=== PATIENT | female | born 1965 | race Caucasian/White ===

== ENCOUNTER → 2016-07-03 | Outpatient (CLI) | payer BC ==
[~2016-07-03] MED LIST: SUMA25TA12 PO; TOPI25TA10 PO; ZOLP5TAB PO
[2016-07-03 18:21] LABS: THYROID STIMULATING HORMONE 1.19 uIu/ml (0.300-4.500)
== END | disposition home or self-care (01) ==
LOC: C.LABBFT 12:14
PROVIDERS: ATTEND Nurse Practitioner
DX: E03.9 Hypothyroidism, unspecified (principal)

== ENCOUNTER → 2016-09-27 | Outpatient (CLI) | payer BC ==
--- NOTE | 2016-09-27 17:00 | DIAGNOSTIC IMAGING REPORT ---
LEFT RIBS UNILATERAL WITH PA CHEST CLINICAL HISTORY: R07.9 Left sided chest [id number] pain COMPARISON STUDY: None FINDINGS: Normal left ribs. Negative chest series. IMPRESSION: Negative study Electronically signed by: Chris Gregory M.D. 09/27/2016 4:59 PM Dictated Date/Time: 09/27/2016 4:57 PM
== END | disposition home or self-care (01) ==
LOC: C.RAD 16:20
PROVIDERS: ATTEND Internal Medicine
DX: R07.9 Chest pain, unspecified (principal)

== ENCOUNTER → 2017-04-15 | Outpatient (CLI) | payer BC ==
[~2017-04-15] MED LIST changes: +LORA-741 PO; +PREMPRO PO
[2017-04-15 10:39] LABS: HEMATOCRIT 42.9 % (37-47); HEMOGLOBIN 14.4 g/dL (12.0-16.0); MEAN CELL VOLUME 88.8 fL (80-100); MEAN CORPUSCULAR HEMOGLOBIN 29.8 pg (25-34); MEAN CORPUSCULAR HGB CONC 33.6 g/dl (32-36); MEAN PLATELET VOLUME 9.1 fL (7.4-10.4); PLATELET COUNT 211 K/uL (130-400); RED CELL DISTRIBUTION WIDTH CV 13.2 % (11.5-14.5); RED CELL DISTRIBUTION WIDTH SD 43.1 fL (36.4-46.3); WHITE BLOOD COUNT 7.44 K/uL (4.8-10.8)
== END | disposition home or self-care (01) ==
LOC: C.LAB1850 09:23
PROVIDERS: ATTEND Obstetrics & Gynecology
DX: R53.83 Other fatigue (principal); Z86.39 Personal history of other endocrine, nutritional and metabolic disease

== ENCOUNTER → 2017-06-04 | Outpatient (CLI) | payer BC ==
[~2017-06-04] MED LIST changes: -LORA-741 PO; -PREMPRO PO
--- NOTE | 2017-06-04 15:23 | MAMMOGRAPHY REPORT ---
BILATERAL DIGITAL SCREENING MAMMOGRAM TOMOSYNTHESIS WITH CAD: 06/04/2017 CLINICAL HISTORY: Routine screening. Patient has no complaints. TECHNIQUE: Breast tomosynthesis in addition to standard 2D mammography was performed. Current study was also evaluated with a Computer Aided Detection (CAD) system. COMPARISON: Comparison is made to exams dated: 04/18/2016 mammogram and 10/12/2009 mammogram - [facility]. BREAST COMPOSITION: The tissue of both breasts is heterogeneously dense, which may obscure small mas ses. FINDINGS: No suspicious masses, calcifications, or areas of architectural distortion are noted in ei ther breast. There has been no significant interval change compared to prior exams. IMPRESSION: ACR BI-RADS CATEGORY 1: NEGATIVE There is no mammographic evidence of malignancy. A 1 year screening mammogram is recommended. The pa tient will receive written notification of the results. Approximately 10% of breast cancers are not detected with mammography. A negative mammographic report should not delay biopsy if a clinically suggestive mass is present. Afua Cash M.D. ah/:06/04/2017 14:07:14 Merchandising Specialist: Natalie CHAMBERS(Jim)(Nancy), [facility] letter sent: Normal 1/2 BI-RADS Code: ACR BI-RADS Category 1: Negative
== END | disposition home or self-care (01) ==
LOC: C.MAMM 13:43
PROVIDERS: ATTEND Internal Medicine
DX: Z12.31 Encounter for screening mammogram for malignant neoplasm of breast (principal)

== ENCOUNTER → 2017-06-13 | Outpatient (CLI) | payer BC | END | disposition home or self-care (01) | LOC: C.LAB 12:54 | PROVIDERS: ATTEND Obstetrics & Gynecology | DX: N95.1 Menopausal and female climacteric states (principal) ==

== ENCOUNTER → 2017-08-08 | Outpatient (CLI) | payer BC ==
[2017-08-08 16:47] LABS: ALBUMIN 4.2 gm/dl (3.4-5.0); ALT/SGPT 25 U/L (12-78); AST/SGOT 16 U/L (15-37); BLOOD UREA NITROGEN 21 mg/dl (7-18); CARBON DIOXIDE 29 mmol/L (21-32); CREATININE 0.76 mg/dl (0.60-1.20); GLUCOSE 94 mg/dl (70-99); POTASSIUM 3.8 mmol/L (3.5-5.1); SODIUM 140 mmol/L (136-145)
[2017-08-08 16:50] LABS: ALKALINE PHOSPHATASE 90 U/L (45-117); CHOLESTEROL 217 mg/dl (0-200); TOTAL PROTEIN 7.8 gm/dl (6.4-8.2)
== END ==
LOC: C.LABBFT 13:24
PROVIDERS: ATTEND Internal Medicine
DX: E78.5 Hyperlipidemia, unspecified (principal)

== ENCOUNTER → 2017-08-27 | Outpatient (CLI) | payer BC | END | disposition home or self-care (01) | LOC: C.LABBFT 07:21 | PROVIDERS: ATTEND Nurse Practitioner | DX: E78.5 Hyperlipidemia, unspecified (principal) ==

== ENCOUNTER → 2017-12-12 | Day surgery (SDC) | payer BC ==
[2017-12-04 12:39] VITALS: BMI 26.0
[~2017-12-12] VITALS: Ht 157.5 cm; Wt 65.0 kg
[~2017-12-12] MED LIST changes: +LIDOCAINE HCL 2% 2 ML VIAL (20MG/ML) ONE; +LORA-741 PO; +MIDAZOLAM HCL 1 MG/ML 2ML VIAL ONE; +ONDANSETRON INJ 2 MG/ML 2 ML VIAL ONE; +PREMPRO PO; +PROPOFOL IV EMULSION 10 MG/ML 20 ML VIAL ONE; +SODIUM CHLORIDE 0.9% 500ML 500 ML IV ONE
[2017-12-12 09:24] VITALS: Ht 157.5 cm; Wt 65.0 kg
--- NOTE | 2017-12-12 09:32 | Endo History and Physical ---
History & Physical Date of Service: Dec 12, 2017. Chief Complaint: Screening Referring Physician: Dr. Lynch History of Present Illness 52 yo CF who presents for screening colonoscopy. Past Surgical History Hx Cardiac Surgery: No Hx Internal Defibrillator: No Hx Pacemaker: No Hx Abdominal Surgery: No Hx of Implantable Prosthesis: No Hx Post-Op Nausea and Vomiting: No Hx Cancer Surgery: No Hx Thoracic Surgery: No Hx Orthopedic: No Hx Urinary Tract Surgery: Yes (CYSTO STONE REMOVAL) Family History None Social History Smoking Status: Never Smoker Hx Substance Use: No Hx Alcohol Use: No Allergies Coded Allergies: No Known Allergies (Verified , 12/04/17) Current Medications Reported Home Medications Medications Dose Route/Sig Max Daily Dose Days Date Category [Prempro] 0.5 Tab PO HS 12/04/17 Reported Ativan (Lorazepam) 0.5 Mg Tab 0.5 Mg PO PRN 12/04/17 Reported Ambien (Zolpidem Tartrate) 5 Mg Tab 2.5 Mg PO HS 08/12/15 Reported Topamax (Topiramate) 25 Mg Tab 25 Mg PO HS 08/12/15 Reported Imitrex (Sumatriptan Succinate) 25 Mg Tab Unknown Dose PO PRN PRN 08/12/15 Reported Vital Signs Weight (Kilograms): 65.00 Height (Feet): 5 Height (Inches): 2 Date Time Temp Pulse Resp B/P (MAP) Pulse Ox O2 Delivery O2 Flow Rate FiO2 12/12/17 09:28 36.5 64 18 115/68 (84) 100 Room Air Physical Exam General Appearance: WD/WN, no apparent distress Respiratory/Chest: Auscultation: breath sounds normal Cardiovascular: Heart Auscultation: RRR Abdomen: Bowel Sounds: normal Inspection & Palpation: soft, non-distended, no tenderness, guarding & rebound Assessment and Plan Assessment: 52 yo CF who presents for screening colonoscopy. Plan: Proceed with colonoscopy.
--- NOTE | 2017-12-12 10:37 | Discharge Instructions ---
Endoscopy Patient Instructions Date / Procedure(s) Performed Dec 12, 2017. Colonoscopy Allergy Information Coded Allergies: No Known Allergies (Verified , 12/04/17) Discharge Date / Findings Dec 12, 2017. Colon polyp Internal hemorrhoids Medication Instructions OK to resume all medications today as prescribed Reported Home Medications Medications Dose Route/Sig Max Daily Dose Days Date Category [Prempro] 0.5 Tab PO HS 12/04/17 Reported Ativan (Lorazepam) 0.5 Mg Tab 0.5 Mg PO PRN 12/04/17 Reported Ambien (Zolpidem Tartrate) 5 Mg Tab 2.5 Mg PO HS 08/12/15 Reported Topamax (Topiramate) 25 Mg Tab 25 Mg PO HS 08/12/15 Reported Imitrex (Sumatriptan Succinate) 25 Mg Tab Unknown Dose PO PRN PRN 08/12/15 Reported Provider Instructions Activity Restrictions - No exercising or heavy lifting for 24 hours. - Do not drink alcohol the day of the procedure. - Do not drive a car or operate machinery until the day after the procedure. - Do not make any important decisions or sign important papers in 24 hours after the procedure. Following Day: - Return to full activity which may include returning to work/school. Diet Start your diet with liquids and light foods (jello, soup, juice, toast). Then eat your usual diet if not nauseated. Treatment For Common After Affects For mild abdominal pain, bloating, or excessive gas: - Rest - Eat lightly - Lie on right side Follow-Up Information Follow-up with DR. WORTHY as scheduled Anesthesia Information What You Should Know You have had a procedure that required some medicine to reduce anxiety and discomfort. This treatment is called moderate sedation. After receiving the treatment, you may be sleepy, but you will be able to breathe on your own. The effects of the treatment may last for several hours. Follow these instructions along with Activity/Diet recommendations noted above: * Do NOT do anything where dizziness or clumsiness would be dangerous. * Rest quietly at home today, then you can be up and about tomorrow. * Have a responsible person stay with you the rest of today. * You may have had an I.V. today. If so, you may take the dressing off later today. Recommendations Call your doctor if: * Trouble breathing * Continuous vomiting for more than 24 hours * Temperature above 101 degrees * Severe abdominal pain or bloating * Pain not relieved by pain medicine ordered * There is increased drainage or redness from any incision * A large amount of rectal bleeding greater than 2-3 tablespoons. (If you had a polyp/s removed or have hemorrhoids, a small amount of blood - from the rectum is to be expected.) * You have any unanswered questions or concerns. IN THE EVENT OF A SERIOUS EMERGENCY, GO TO THE NEAREST EMERGENCY ROOM Your discharge instructions were prepared by provider Yuval Shields. Patient Instructions Signature Page Mary Mendez Patient (or Guardian) Signature/Date: I have read and understand the instructions given to me by my caregivers. Caregiver/RN/Doctor Signature/Date: The above-named patient and/or guardian has received patient instructions on this date. + Original Patient Signature Page (only) stays with chart. Please make copy for patient.
--- NOTE | 2017-12-12 10:41 | GI REPORT ---
Patient Name: Mary Mendez Procedure Date: 12/12/2017 9:43 AM Date of : 1965 Admit Type: Outpatient Age: 52 Gender: Female Attending MD: Yuval Shields DO Procedure: Colonoscopy Providers: Yuval Shields DO Referring MD: Yuval Shields DO Indications: Screening for colorectal malignant neoplasm Medicines: Monitored Anesthesia Care Complications: No immediate complications. Estimated Blood Loss: Estimated blood loss: none. Procedure: Pre-Anesthesia Assessment: - Prior to the procedure, a History and Physical was performed, and patient medications and allergies were reviewed. The patient's tolerance of previous anesthesia was also reviewed. The risks and benefits of the procedure and the sedation options and risks were discussed with the patient. All questions were answered, and informed consent was obtained. Prior Anticoagulants: The patient has taken no previous anticoagulant or antiplatelet agents. ASA Grade Assessment: II - A patient with mild systemic disease. After reviewing the risks and benefits, the patient was deemed in satisfactory condition to undergo the procedure. After I obtained informed consent, the scope was passed under direct vision. Throughout the procedure, the patient's blood pressure, pulse, and oxygen saturations were monitored continuously. The scope was introduced through the anus and advanced to the terminal ileum. The colonoscopy was performed without difficulty. The patient tolerated the procedure well. The quality of the bowel preparation was good. The terminal ileum, ileocecal valve, appendiceal orifice, and rectum were photographed. Findings: The perianal and digital rectal examinations were normal. A 4 mm polyp was found in the descending colon. The polyp was sessile. The polyp was removed with a cold snare. Resection and retrieval were complete. Non-bleeding internal hemorrhoids were found during retroflexion. The hemorrhoids were small. Impression: - One 4 mm polyp in the descending colon, removed with a cold snare. Resected and retrieved. - Non-bleeding internal hemorrhoids. Recommendation: - Resume previous diet. - Continue present medications. - Repeat colonoscopy for surveillance based on pathology results. - Return to primary care physician as previously scheduled. Yuval Shields DO 12/12/2017 10:41:00 AM This report has been signed electronically. Note Initiated On: 12/12/2017 9:43 AM Number of Addenda: 0 I attest to the content of the Intraoperative Record and orders documented therein, exceptions below {[id number]}
--- NOTE | 2017-12-12 10:48 | Anesthesiology Progress Note ---
Anesthesia Post Op Note Date & Time Dec 12, 2017 at 10:48 Vital Signs Pain Intensity: 0 Vital Signs Past 12 Hours Date Time Temp Pulse Resp B/P (MAP) Pulse Ox O2 Delivery O2 Flow Rate FiO2 12/12/17 10:40 63 20 106/66 (79) 98 Room Air 12/12/17 10:25 36.5 62 16 98/55 (69) 98 Room Air 12/12/17 09:28 36.5 64 18 115/68 (84) 100 Room Air Notes Mental Status: alert / awake / arousable, participated in evaluation Pt Amnestic to Procedure: Yes Nausea / Vomiting: adequately controlled Pain: adequately controlled Airway Patency, RR, SpO2: stable & adequate BP & HR: stable & adequate Hydration State: stable & adequate Anesthetic Complications: no major complications apparent
[2017-12-12 10:55] VITALS: BP 109/78; PULSE 66; TEMP 36.5; O2SAT 100
== END | disposition home or self-care (01) ==
LOC: C.GI 09:08
PROVIDERS: ATTEND Internal Medicine
DX: Z12.11 Encounter for screening for malignant neoplasm of colon (principal); D12.4 Benign neoplasm of descending colon; K57.30 Diverticulosis of large intestine without perforation or abscess without bleeding; K64.8 Other hemorrhoids; Z80.0 Family history of malignant neoplasm of digestive organs; K21.9 Gastro-esophageal reflux disease without esophagitis

== ENCOUNTER 2023-12-07 21:56 | Observation (INO) ==
--- OUTSIDE RECORDS SUMMARY | 2023-12-07 22:03 | External Medical Summary | Summary of Care ---
Author Name Unknown Organization [facility] Address [address] [place] [address] Phone [phone] Care Team Providers Care Wind Energy Project Manager Name Role Phone Isabel Hendrix DO Primary Care Provider [phone] Reason for Visit * Reason Onset Date Comments Follow Up 11/12/2023 Encounter Details Date Type Department Care Team (Late st Contact Info) Description 11/12/2023 2:00 PM EDT Scheduled Telephone [facility], [facility] [address] [place] [address] [facility] Nurse Phone Call Interventional Pain [facility] [address] [place] [phone] Arrived Allergies Active Allergy Reactions Criticality Noted Date Comments Egg-Derived Products 09/26/2020 Other reaction(s): Headache Starch-Maltodextrin 10/26/2020 Triggers migraines Tilactase 09/26/2020 Other reaction(s): GI Intolerance documented as of this encounter (statuses as of 11/12/2023) Medications Medication Sig Dispensed Refills Start Date End Date Status zolpidem (AMBIEN) 5 MG Tablet Take 1 Tablet by mouth. 1/2 at bedtime 03/01/2019 Active Qulipta 60 MG Oral Tablet Daily 10/06/2021 Active Topiramate 25 MG Oral Tablet (topAMAX)Indications :Migraine variant,Tremor TAKE 2 TABLETS EVERY NIGHT AT BEDTIME 180 Tablet 1 11/22/2021 Active SUMAtriptan Succinate 100 MG Oral Tablet TAKE ONE TABLET BY MOUTH AT ONSET OF MIGRAINE , MAY REPEAT IN 2 HOURS . MAX OF 2 IN 24 HOURS. 10 Tablet 5 02/04/2022 Active documented as of this encounter (statuses as of 11/12/2023) Active Problems Problem Noted Date Diagnosed Date Localized adiposity 12/10/2007 ADVANCE DIRECTIVE INFORMATION 10/07/2007 Overview: Yes, Patient instructed to provide copy of advance directive for provider to review and to be scanned into Electronic Medical Record VARIANTS OF MIGRAINE WITHOUT MENTION OF INTRACTABLE MIGRAINE 10/07/2005 documented as of this encounter (statuses as of 11/12/2023) Immunizations Name Administration Dates Next Due TDAP (age 10 and older)(Boostrix) 08/07/2014 documented as of this encounter Social History Tobacco Use Types Packs/Day Years Used Date Smoking Tobacco: Never Passive Smoke Exposure: Never Smokeless Tobacco: Never Alcohol Use Standard Drinks/Week Comments No 0 (1 standard drink = 0.6 oz pur e alcohol) PHQ-2 Answer Date Recorded PHQ Adult Total Score 0 09/30/2022 Hunger Vital Sign Answer Date Recorded Within the past 12 months, y ou worried that your food would run out before you got the money to buy more. Never true 10/01/19 23 Within the past 12 months, t he food you bought just didn't last and you didn't have money to get more. Never true 09/30/2022 Utilities Answer Date Recorded Do you have trouble paying y our heating, water, or electric bill? (Adult - for ages 18 years and over) Not on file 10/07/2023 Is your family able to pay t he heat, water, or electric bill? (Household - for ages 0-17 years) Not on file 10/07/2023 Does your family have access to good internet? (Household - for ages 0-17 years) Not on file 10/07/2023 Social Connections Answer Date Recorded How often do you feel lonely or isolated from those around you? (Adult - for ages 18 years and over) Not on file 10/07/2023 Sex and Gender Information Value Date Recorded Sex Assigned at Female 09/30/2022 8:23 AM EDT Gender Identity Female 09/30/2022 8:23 AM EDT Sexual Orientation Straight 09/30/2022 8: 23 AM EDT Job Start Date Occupation Industry Not on file Not on file Not on file documented as of this encounter Miscellaneous Notes * Telephone Encounter - Melina Boggs LPN - 11/12/2023 2:02 PM EDT Patient reports 60% improvement after C7-T1 interlaminar epidural steroid injection on the left side. Tolerable and will call as needed. documented in this encounter Plan of Treatment Upcoming Encounters Date Type Department Care Team (Late st Contact Info) Description 11/21/2023 11:50 AM EDT Office Visit [facility] [address] [place] [address] Isabel Hendrix DO [address] [place] [address] Health Maintenance Due Date Last Done Comments HIV Screening 1982 Hepatitis C Screening 1985 Hepatitis B Vaccine (1 of 3 - 19+ 3-dose series) 1986 HPV/Co-Test 1997 Cologuard 02/15/2012 Fecal Occult Blood Test 02/15/2012 Sigmoidoscopy 02/15/2012 Zoster Vaccines (1 of 2) 2017 Cervical Cancer Screening 06/08/2021 Pap Smear 06/08/2021 06/08/2018, 05/22 (Done elsewhere), 10/22/2011 (Not indicated) COVID-19 Vaccine (2022- season) 2022 07/04/2020, 06/19/2020 Mammogram 06/29/2023 06/28/2022, 06/19 (Done elsewhere) Depression Screening 10/01/2023 09/30/2022 Influenza Vaccine (FLU shot) (#1) 2023 DTaP,Tdap,and Td Vaccines (2 - Td or Tdap) 08/07/2024 08/07/2014 Diabetes Screening 10/02/2025 10/02/2022, 0 10/26/2020, 10/26/2020, Additional history exists Colonoscopy 12/13/2027 12/12/2017 Colorectal Cancer Screening 12/13/2027 Lipid Panel 05/24/2028 05/24/2023 HPV (Gardasil) Vaccine Aged Out No lo nger eligible based on patient's age to complete this topic MENINGOCOCCAL (MENACTRA/MENVEO) Aged Out No longer eligible based on patient's age to complete this topic Pneumococcal Vaccine: Pediatrics (0 to 5 Years) and At-Risk Patients (6 to 64 Years) Aged Out No longer eligible based on patient's age to complete this topic documented as of this encounter Medical Devices Not on filedocumented as of this encounter Advance Directives * Full Code (Latest Code Status on File) Date Activated Date Inactivated Comments 10/26/2020 9:11 AM 10/26/2020 4:26 PM This order ref lects the patients wishes and were consensually agreed upon. Question Answer Comments Discussion of Advance Directives occurred with: Not Discussed * Full Code Date Activated Date Inactivated Comments 12/14/2007 3:40 PM 12/14/2007 9:32 PM Care Teams Wind Energy Project Manager Relationship Specialty Start Date End Date Isabel Hendrix DO [address] [facility] [place] [address] PCP - General Family Medicine 09/30/22 documented as of this encounter
--- OUTSIDE RECORDS SUMMARY | 2023-12-07 22:03 | External Medical Summary | Summary of Care ---
Author Name Unknown Organization [facility] Address [address] [place] [address] Phone [phone] Care Team Providers Care Rubber Goods Finisher Name Role Phone Isabel Hendrix DO Primary Care Provider [phone] Reason for Visit * Reason Onset Date Comments Health Maintenance 11/04/2023 Encounter Details Date Type Department Care Team (Late st Contact Info) Description 11/04/2023 Telephone [facility] [address] [place] [address] Isabel Hendrix DO [address] [place] [address] Health Maintenance Allergies Active Allergy Reactions Criticality Noted Date Comments Egg-Derived Products 09/26/2020 Other reaction(s): Headache Starch-Maltodextrin 10/26/2020 Triggers migraines Tilactase 09/26/2020 Other reaction(s): GI Intolerance documented as of this encounter (statuses as of 11/04/2023) Medications Medication Sig Dispensed Refills Start Date [...] as of this encounter (statuses as of 11/04/2023) Active Problems Problem Noted Date Diagnosed Date Localized adiposity 12/10/2007 ADVANCE DIRECTIVE INFORMATION 10/07/2007 Overview: Yes, Patient instructed to provide copy of advance directive for provider to review and to be scanned into Electronic Medical Record VARIANTS OF MIGRAINE WITHOUT MENTION OF INTRACTABLE MIGRAINE 10/07/2005 documented as of this encounter (statuses as of 11/04/2023) Immunizations Name Administration Dates Next Due TDAP [...] encounter Miscellaneous Notes * Telephone Encounter - Merari Zamudio LPN - 11/04/2023 10:36 AM EDT Care Gaps Comprehensive Care Outreach Last Office/Telemedicine Visit: 05/23/2023 (in office), Visit date not found (telemedicine) Next Office Visit: 11/21/2023 Hemoglobin AIC Results: No results found for: "HEMOGLOBIN A1C" BP Readings from Last 1 Encounters: 10/15/23 120/75 Reviewed Health Maintenance below: Health Maintenance Topic Date Due HIV Screening Never done Hepatitis C Screening Never done Hepatitis B Vaccine (1 of 3 - 19+ 3-dose series) Never done Zoster Vaccines (1 of 2) Never done Cervical Cancer Screening 06/08/2021 COVID-19 Vaccine (2022- season) 2022 Mammogram 06/29/2023 Depression Screening 10/01/2023 Mamm Pap already scheduled Care Gap Outreach Action Taken: Datalinkt message sent documented in this encounter Plan of Treatment Upcoming Encounters Date Type Department Care Team (Late st Contact Info) Description 11/12/2023 2:00 PM EDT Scheduled Telephone Interventional Pain Center, [facility] [address] [place] [address] [facility], Nurse Phone Call Interventional Pain [facility] [address] [place] [phone] 11/21/2023 11:50 AM EDT Office Visit [facility] [address] [place] [id number] Isabel Hendrix DO [address] [place] [address] Health Maintenance Due Date Last Done Comments HIV Screening 1982 Hepatitis C Screening 1985 Hepatitis B Vaccine (1 of 3 - 19+ 3-dose series) 1986 HPV/Co-Test 1997 Cologuard 02/15/2012 Fecal Occult Blood Test 02/15/2012 Sigmoidoscopy 02/15/2012 Zoster Vaccines (1 of 2) 2017 Cervical Cancer Screening 06/08/2021 Pap Smear 06/08/2021 06/08/2018, 05/22 (Done elsewhere), 10/22/2011 (Not indicated) COVID-19 Vaccine (3 - season) 2022 07/04/2020, 06/19/2020 Mammogram 06/29/2023 06/28/2022, [...] 3:40 PM 12/14/2007 9:32 PM Care Teams Rubber Goods Finisher Relationship Specialty Start Date End Date Isabel Hendrix DO [address] [place] [address] PCP - General Family Medicine 09/30/22 documented as of this encounter
[2023-12-07] MEDS: FAMOTIDINE 20MG IV PUSH 20 MG/5 ML SYR IV STA (22:21)
[2023-12-07] MEDS: SODIUM CHLORIDE 0.9% 1,000 ML IV STA (22:22)
[2023-12-07] MEDS: ACETAMINOPHEN 1,000 MG/100 ML VIAL IV STA (22:23)
[2023-12-07] MEDS: ONDANSETRON INJ 2 MG/ML 2 ML VIAL IV STA (22:23)
--- NOTE | 2023-12-07 22:29 | Emergency Department Note ---
History of Present Illness General Chief complaint: Abdominal Pain Stated complaint: PAIN IN UPPER ABDOMEN, BACK PAIN, NAUSEA Time Seen by Provider: 12/07/23 22:03 History of Present Illness Maximum Pain Intensity: 5 This 58-year-old female presents ER complaining of epigastric right upper quadrant pain after eating a chicken sandwich and Azeri fries tonight from the field. No history of similar symptoms in the past. She still has her gallbladder. Patient denies chest pain, dyspnea, fevers, vomiting, diarrhea or any other medical complaints. She has had a hiatal hernia surgery in the past. No other abdominal surgeries. Home Medications Medication Instructions Recorded Confirmed Type sumatriptan succinate 100 mg tablet 100 mg PO .COMPLEX PRN Headache 04/07/23 12/07/23 Rx #12 tabs topiramate 50 mg tablet 50 mg PO BID #180 tabs 06/09/23 12/07/23 Rx atogepant 60 mg tablet (Qulipta) 60 mg PO PM 90 days #90 tabs 07/02/23 12/07/23 Rx zolpidem 5 mg tablet 5 mg PO HS PRN insomnia #30 tabs 08/06/23 12/07/23 Rx meclizine 25 mg tablet 25 mg PO TID PRN dizziness #90 tabs 08/07/23 12/07/23 Rx Allergies Allergy/AdvReac Type Severity Reaction Status Date / Time maltodextrin Allergy Intermediate Migraine Verified 10/29/23 07:44 Past Med/Surg History Problem List Abdominal pain, acute (Acute) Biliary colic (Acute) Posterior auricular pain of right ear Vertigo Acute migraine Varicose veins of both lower extremities Migraines Eczema (Chronic) Insomnia (Chronic) Hypothyroidism (Chronic) Cervical facet syndrome (Chronic) Hyperlipidemia (Chronic) Depression with anxiety (Chronic) Classic migraine with aura (Chronic) Neck pain (Acute) Mild obstructive sleep apnea Fatigue Chronic migraine Palpitations Myofascial pain Vitamin D deficiency Pulmonary nodule Medical History Endometriosis Surgical History History of endometrial ablation History of hysteroscopy History of lithotripsy History of cystostomy Family History Father Cardiac disorder Other Dementia Denies family history of Ovarian cancer Prostate cancer Breast cancer Colorectal cancer Social History Smoking Status: Never smoker Second Hand Exposure: No; Do You Dip or Chew Tobacco: No; Hx Alcohol Use: No Hx Substance Use: No Preferred Language: Chinese Communication Ability: Effective Visual Impairment: No Limitations Hearing Ability: Normal Beliefs That Will Affect Care: None marital status: Current Living Situation: Family current occupational status: employed 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 Feels Safe at Home: Yes Childhood Exposure to Second-Hand Smoke: No Diet: other Diet Comment: healthy diet Dental Care, Regularly: Yes Physical Activity Frequency: 3-4 Times per Week Seatbelt Use: always Sunscreen Use: Yes Review of Systems A total of 10 systems reviewed and were otherwise negative Physical Exam Vital Signs Vital Signs - 24 hr 12/07/23 22:00 12/07/23 22:13 12/07/23 22:24 Temperature 36.6 C Temperature Source Temporal Artery Scan Pulse Rate 84 80 Pulse Rate [Apical] Pulse Strength [Apical] Respiratory Rate 18 Respiratory Effort / Characteristics Non-Labored Spontaneous Respiratory Depth Normal Respiratory Pattern Regular Blood Pressure 158/83 H Blood Pressure [Left Arm] Blood Pressure Mean 108 Blood Pressure Mean [Left Arm] Pulse Oximetry 100 99 Oxygen Delivery Method Room Air Room Air Sepsis Recent Fever Within 48 Hours No Sepsis New/Unexplained Change in Mental Status N/A Sepsis Action Taken by Nursing No Action Required 12/07/23 22:25 12/08/23 00:00 12/08/23 00:01 Temperature Temperature Source Pulse Rate Pulse Rate [Apical] 76 75 75 Pulse Strength [Apical] Normal Respiratory Rate 18 16 16 Respiratory Effort / Characteristics Non-Labored Spontaneous Non-Labored Spontaneous Respiratory Depth Normal Normal Respiratory Pattern Regular Regular Blood Pressure Blood Pressure [Left Arm] 160/93 H 111/80 111/80 Blood Pressure Mean Blood Pressure Mean [Left Arm] 115 90 90 Pulse Oximetry 100 98 98 Oxygen Delivery Method Room Air Room Air Sepsis Recent Fever Within 48 Hours Sepsis New/Unexplained Change in Mental Status Sepsis Action Taken by Nursing VITALS: Vitals are noted on the nurse's note and reviewed by myself. Vital signs stable. GENERAL: Pleasant patient, in no acute distress, nondiaphoretic, well-developed well-nourished. SKIN: Capillary reflex less than 2 seconds. HEENT: Normocephalic. PERRLA. EOMI. Nares patent. Mucous membranes moist. Neck is supple without nuchal rigidity. HEART: Regular rate and rhythm LUNGS: Clear to auscultation bilaterally without wheezes, rales or rhonchi. No retractions or accessory muscle use. ABDOMEN: Positive bowel sounds x 4. Normal tympanic percussion. Soft, tender epigastric right upper quadrant,, without masses or organomegaly. No guarding or rebound tenderness. no CVA tenderness MUSCULOSKELETAL: No gross musculoskeletal defects. NEURO: Patient was alert and oriented to person place and time. No focal neurological deficits. Course Administered Medications Sodium Chloride (Nss) 1,000 mls @ 100 mls/hr IV .Q10H BIPIN Stop: 01/07/24 00:14 Last Admin: 12/08/23 00:40 Dose: 100 mls/hr Documented By: JENNIFER Discontinued Medications Sodium Chloride (Nss) 1,000 mls @ 999 mls/hr IV .Q1H1M STA Stop: 12/07/23 23:13 Last Infusion: 12/07/23 23:23 Dose: Infused Documented By: Admin: 12/07/23 22:22 Dose: 999 mls/hr Documented By: KM Famotidine (Pepcid 20mg Iv Push) 20 mg in 5 mls @ 2.5 mls/min IV NOW STA Stop: 12/07/23 22:14 Last Admin: 12/07/23 22:21 Dose: 2.5 mls/min Documented By: KM Acetaminophen (Ofirmev) 1,000 mg in 100 mls @ 400 mls/hr IV NOW STA Stop: 12/07/23 22:27 Last Infusion: 12/07/23 22:38 Dose: Infused Documented By: Admin: 12/07/23 22:23 Dose: 400 mls/hr Documented By: KM Cefoxitin Sodium (Mefoxin) 2,000 mg in 60 mls @ 100 mls/hr IV NOW STA Stop: 12/08/23 00:39 Last Infusion: 12/08/23 01:01 Dose: Infused Documented By: Admin: 12/08/23 00:38 Dose: 100 mls/hr Documented By: JENNIFER Ondansetron HCl (Ondansetron Inj 2 Mg/Ml 2 Ml Vial) 4 mg IV NOW STA Stop: 12/07/23 22:14 Last Admin: 12/07/23 22:23 Dose: 4 mg Documented By: KM Medical Decision Making Medical Records Attestation: I reviewed the patient's medical records. Home Medications Current Medication List: was personally reviewed by me Laboratory Data Attestation: I reviewed the patient's lab results. 12/07/23 22:20 12/07/23 22:20 Lab Results 12/07/23 12/07/23 Range/Units 22:20 23:02 WBC 15.62 H (4.8-10.8) K/ul RBC 4.84 (4.20-5.40) M/uL Hgb 14.1 (12.0-16.0) g/dl Hct 41.9 (37.0-47.0) % MCV 86.6 (80.0-100.0) fL MCH 29.1 (25.0-34.0) pg MCHC 33.7 (32.0-36.0) g/dL RDW Std Deviation 41.5 (36.4-46.3) fL RDW Coeff of [place] 13.2 (11.5-14.5) % Plt Count 271 (130-400) K/uL MPV 8.6 L (9.4-12.4) fL Immature Gran % (Auto) 0.4 % Neut % (Auto) 80.5 % Lymph % (Auto) 13.1 % [place] % (Auto) 5.4 % Eos % (Auto) 0.3 % Baso % (Auto) 0.3 % Neut # (Auto) 12.58 H (1.40-6.50) K/uL Lymph # (Auto) 2.05 (1.20-3.40) K/uL [place] # (Auto) 0.84 H (0.11-0.59) K/uL Eos # (Auto) 0.05 (0.00-0.50) K/uL Baso # (Auto) 0.04 (0.00-0.20) K/uL Immature Gran # (Auto) 0.06 (0.01-0.20) K/uL Sodium 140 (136-145) mmol/L Potassium 3.9 (3.5-5.1) mmol/L Chloride 106 (98-107) mmol/L Carbon Dioxide 26 (21-32) mmol/L Anion Gap 8 (3-11) BUN 15 (6-23) mg/dl Creatinine 0.77 (0.6-1.2) mg/dl Est Cr Clr Drug Dosing 72.4 ml/min Est GFR ( Amer) 100.0 ml/min Est GFR (Non-Af Amer) 86.3 ml/min BUN/Creatinine Ratio 19.5 (10-20) Glucose 140 H (70-99(Fasting)) mg/dl Calcium 10.0 (8.6-10.3) mg/dl Total Bilirubin 0.3 (0.2-1.0) mg/dl AST 16 (13-39) U/L ALT 14 (7-52) U/L Alkaline Phosphatase 103 (34-104) U/L Troponin I High Sens 3.1 (0-14) pg/ml Total Protein 7.3 (6.0-8.3) gm/dl Albumin 4.9 (3.4-5.0) gm/dl Globulin 2.4 L (2.5-4.0) gm/dl Albumin/Globulin Ratio 2.0 (0.9-2) Lipase 67 (11-82) U/L HCG, Qual Negative (Negative) Urine Color Yellow Urine Appearance Clear (Clear) Urine pH 6.5 (4.5-7.5) Ur Specific Decker 1.015 (1.000-1.030) Urine Protein Negative (Negative) Urine Glucose (UA) Negative (Negative) Urine Ketones Negative (Negative) Urine Blood Negative (Negative) Urine Nitrite Negative (Negative) Urine Bilirubin Negative (Negative) Urine Urobilinogen Negative (Negative) Ur Leukocyte Esterase 2+ H (Negative) Urine WBC (Auto) 11-20 H (0-5) /hpf Urine RBC (Auto) 0-2 (0-2) /hpf U Hyaline Cast (Auto) 0-2 (0-2) /lpf U Epithel Cells (Auto) 0-2 (0-2) /hpf Urine Bacteria (Auto) None Seen (None Seen) Imaging Data Attestation: I personally reviewed and interpreted this imaging study as follows: Radiologist's Impression: Gallbladder Ultrasound 12/07/23 22:13 Exam(s): US GALLBLADDER EXAM: US Abdomen Limited, Right Upper Quadrant CLINICAL HISTORY: ruq pain. TECHNIQUE: Real-time ultrasound of the right upper quadrant with image documentation. COMPARISON: CT abdomen 02/07/2023. FINDINGS: Liver: 18.6 image length. Heterogeneous. No focal intrahepatic lesion. No mass. No intrahepatic bile duct dilation. Gallbladder: Multiple mobile gallstones within the gallbladder. No gallbladder wall thickening or pericholecystic fluid. Nondiagnostic sonographic Delgado's sign due to medication. Common bile duct: 3.9 mm. No stones. No dilation. Pancreas: 2.2 mm pancreatic duct. Pancreas is normal in appearance. Right kidney: 11.3 cm length. 1.1 cm cyst in the midpole. No stones. No solid mass. No hydronephrosis. IMPRESSION: Cholelithiasis. No alternatives for acute cholecystitis or biliary obstruction. Prominent heterogeneous liver without focal lesion. Right renal cyst. Electronically signed by: Chandu Wilson M.D. 12/08/23 01:[address] [facility] Narrative Prior records/ancillary studies reviewed. Triage Nursing notes reviewed. Additional history obtained from nursing. The patient's history was concerning for abdominal pain. Differential diagnosis: Etiologies such as appendicitis, diverticulitis, PUD, biliary pathology, UTI, pancreatitis, obstruction, mesenteric ischemia, aortic pathology, infections, inflammatory bowel disease, renal colic, as well as others were entertained. Physical examination findings: As above. ER treatment provided: An order was placed for continuous cardiac monitoring. The monitor shows a rate of 60-100 with a sinus rhythm per my Independent interpretation. Zofran, Pepcid, Tylenol, IV fluids were ordered On reassessment the patient felt better. Diagnostics interpreted by me: ECG: Ordered for upper abdominal pain EKG: Normal sinus, normal intervals, no acute ST-T wave changes. Impression normal sinus rhythm independently interpreted by myself The labs Independently Interpreted by myself revealed leukocytosis, normal LFTs. Normal lipase Hyperglycemia without DKA Imaging studies: Ultrasound as above HEART SCORE: Hx: high/mod/low suspicion: 0 ECG: ST depression/nonspecific changes/normal: 0 Age: Greater than 65/45-64/less than 45: 1 Risk factors: (Hypertension, hyperlipidemia, diabetes, coronary disease, tobacco use, cocaine use): 0 Troponin: Greater than 2 times normal limits/1-2 times normal limits/normal: 0 Total: 1 Consultation: A consultation was placed with the general surgery. The case was discussed and diagnostics were reviewed. The patient was evaluated in the ER for further treatment. Exam and history seem consistent with biliary colic with concerns for acute cholecystitis. Surgery did evaluate the patient. They will admit her. Patient is agreeable. Patient was admitted to the surgical service. Normal LFTs. Mild leukocytosis. Normal bilirubin. By the evaluation outlined above emergent etiologies such as appendicitis, diverticulitis, PUD, UTI, pancreatitis, obstruction, mesenteric ischemia, aortic pathology, inflammatory bowel disease, renal colic, as well as others were deemed relatively unlikely. The pt informed about the findings as listed above. All questions were answered and pleased with the treatment. The chart was completed utilizing PingMe Speech voice recognition software. Grammatical errors, random word insertions, pronoun errors, and incomplete sentences are an occassional consequence of this system due to software limitations, ambient noise, and hardware issues. Any formal questions or concerns about the content, text, or information contained within the body of this dictation should be directly addressed to the physician starch treating assistant for clarification. Impression & Plan Biliary colic, Abdominal pain, acute Discharge Plan Visit Data Chief Complaint: Abdominal Pain Stated Complaint: PAIN IN UPPER ABDOMEN, BACK PAIN, NAUSEA ED Provider: Chris Craig ED Midlevel Provider: Ann Lebron Discharge Problem: Biliary colic, Abdominal pain, acute Patient Disposition: Being Evaluated by Surgeon Condition: Good Forms Stand Alone Forms: ISORG Prescriptions Prescriptions: No Action sumatriptan succinate 100 mg tablet 100 mg PO .COMPLEX PRN (Reason: Headache) Qty: 12 5RF Rx Instructions: 100 mg PO TAKE 1 TAB AT ONSET OF MIGRAINE, MAY REPEAT IN 2 HOURS IF NEEDED DO NOT EXCEED 3 DAYS/WEEK PRN; topiramate 50 mg tablet 50 mg PO BID Qty: 180 3RF zolpidem 5 mg tablet 5 mg PO HS PRN (Reason: insomnia) Qty: 30 3RF Qulipta 60 mg tablet 60 mg PO PM 90 Days Qty: 90 3RF meclizine 25 mg tablet 25 mg PO TID PRN (Reason: dizziness) Qty: 90 0RF Referrals Referrals: Jackie Posey CRNP [Primary Care Provider] -
[2023-12-07 22:36] LABS: Basophils # (auto) 0.04 K/uL (0.00-0.20); Basophils % (auto) 0.3 %; Eosinophils # (auto) 0.05 K/uL (0.00-0.50); Eosinophils % (auto) 0.3 %; Hematocrit (blood only) 41.9 % (37.0-47.0); Hemoglobin 14.1 g/dl (12.0-16.0); Immature Granulocytes # (auto) 0.06 K/uL (0.01-0.20); Immature Granulocytes % (auto) 0.4 %; Lymphocytes # (auto) 2.05 K/uL (1.20-3.40); Lymphocytes % (auto) 13.1 %; Mean Corpuscular Hemoglobin 29.1 pg (25.0-34.0); Mean Corpuscular Hgb Conc 33.7 g/dL (32.0-36.0); Mean Corpuscular Volume 86.6 fL (80.0-100.0); Mean Platelet Volume 8.6 fL (9.4-12.4); Monocytes # (auto) 0.84 K/uL (0.11-0.59); Monocytes % (auto) 5.4 %; Neutrophils # (auto) 12.58 K/uL (1.40-6.50); Neutrophils % (auto) 80.5 %; Platelet Count 271 K/uL (130-400); RDW Coefficient of Variation 13.2 % (11.5-14.5); RDW Standard Deviation 41.5 fL (36.4-46.3); Red Blood Count 4.84 M/uL (4.20-5.40); White Blood Count 15.62 K/ul (4.8-10.8)
[2023-12-07 22:49] LABS: Albumin Level 4.9 gm/dl (3.4-5.0); BUN Creatinine Ratio 19.5 (10-20); Bilirubin,Total 0.3 mg/dl (0.2-1.0); Creatinine Clr Calc Pharmacy 72.4 ml/min; Est GFR (Non-African American) 86.3 ml/min; Globulin 2.4 gm/dl (2.5-4.0); Potassium 3.9 mmol/L (3.5-5.1); Total Protein 7.3 gm/dl (6.0-8.3)
[2023-12-07 22:56] LABS: Troponin I High Sensitivity 3.1 pg/ml (0-14)
[2023-12-07 23:17] LABS: Appearance Urine Clear (Clear); Bacteria Urine Automated None Seen (None Seen); Bilirubin Urine Negative (Negative); Blood Urine Negative (Negative); Cast Urine Automated 0-2 /lpf (0-2); Color Urine Yellow; Epithelial Cell Urine Auto 0-2 /hpf (0-2); Glucose Urine UA Negative (Negative); Ketones Urine Negative (Negative); Leukocyte Esterase Urine 2+ (Negative); Nitrite Urine Negative (Negative); Protein Urine Negative (Negative); RBC Urine Automated 0-2 /hpf (0-2); Specific Gravity Urine 1.015 (1.000-1.030); Urobilinogen Urine Negative (Negative); pH Urine 6.5 (4.5-7.5)
[2023-12-08] MEDS ORDERED: ONDANSETRON INJ 2 MG/ML 2 ML VIAL IV PRN ×2 (00:01→13:52)
[2023-12-08] MEDS ORDERED: ACETAMINOPHEN 1,000 MG/100 ML VIAL IV PRN (00:01)
--- NOTE | 2023-12-08 00:01 | History & Physical Report ---
Date of Service December 07, 2023 Assessment & Plan (1) Biliary colic: Plan: I discussed with the treating clinician emergency department and evaluated the patient in room C11. I discussed with the patient that the pulmonary read of her ultrasound does show cholelithiasis without definite cholecystitis. I discussed with the patient that I would like to wait for the official radiology read to see if the patient has cholecystitis and if this was present would be an indication to have her admitted to the hospital for consideration of cholecystectomy. I did discuss with the patient that if she does not have cholecystitis but merely has cholelithiasis an argument can be made for her to be discharged home and pursue cholecystectomy as an outpatient. I did discuss with the patient that if she was to be discharged home I cannot predict in any reliable fashion if she would have symptoms similar to what caused her emergency room presentation nor could I predict the timing of such symptoms. The patient does note that her symptoms were very severe and she wishes to be admitted to the hospital for consideration of cholecystectomy at this time. We will therefore admit her to the surgical service proceeding as follows: Analgesics to be provided Antiemetics to be provided IV fluids to be provided for hydration Will initiate antibiotics in the form of cefoxitin We Will get repeat labs the morning of 12/08/2023 to ensure there is no elevation of her LFTs that are not evident on her current laboratories Will check a test Will get a preoperative chest x-ray for baseline purposes Will tentatively schedule the patient undergo cholecystectomy on 12/08/2023. Will use SCDs for DVT prevention, no chemical means due to planned surgery Additional recommendations be based on operative findings and her postoperative recovery thereafter She will be a level 1 full code Addendum: Chest x-ray does not show any evidence of pneumonia. test noted to be negative Addendum: (1:15 AM) Gallbladder ultrasound report obtained from radiology. Interpreting radiologist noted multiple mobile gallstones within the gallbladder with no gallbladder wall thickening or pericholecystic fluid. The common bile duct was not dilatated and there was no evidence of choledocholithiasis noted I discussed these findings with the patient indicating that there is no definite evidence of cholecystitis. Due to the biliary colic that caused her presentation she still wished to be admitted to the hospital for consideration of cholecystectomy on 12/08/2023. Will continue with plan as detailed above History of Present Illness Chief Complaint: Abdominal pain Primary Care Provider: MATTHEW Hernandez This is a 58-year-old female who presented to the emergency department secondary to abdominal pain. The patient notes that she occasionally gets heartburn after eating and she has had symptoms such as this for months. The patient notes that she went to a restaurant and had a chicken salad and shortly after eating (approximate 1/2-hour) she developed severe pain in the epigastric region as well as the right upper quadrant. She says that the pain was nonradiating without any modifying factors other than it was relieved with medicines administered in the emergency department. The patient did have nausea without vomiting. She denies any fevers, shakes, or chills. Patient notes that she has no known history of gallstones prior to today's presentation. The patient says that she has had prior surgery in the form of a robotic/laparoscopic Brian fundoplication and hiatal hernia repair in January 2023 performed at [facility] in [facility]. She notes that this procedure was performed secondary to severe reflux. The patient notes that she leads an active lifestyle and does not get chest pain or shortness of breath with her typical activities of daily living. She specifically notes that she can negotiate multiple flights of steps without getting chest pain or shortness of breath. She notes that she is a non-smoker. Since arrival to the hospital the patient has had labs and imaging which I independent reviewed. A gallbladder ultrasound was performed. The official radiology read has not been completed but upon my review of the study this shows that the patient has multiple gallstones. I did review the ultrasound with the technologist performing the study and the patient was again noted to have multiple gallstones and they are noted to be mobile when the study was performed. The patient did not have noted gallbladder wall thickness and no pericholecystic fluid was noted. Labs included CBC were white blood cell count was elevated 15.6. Hemoglobin and hematocrit as well as platelet count were normal. Chemistry profile showed sodium and potassium as well as the BUN and creatinine were normal. There is no elevation of the patient's bilirubin, transaminases, or alkaline phosphatase. Lipase was also not elevated. Urinalysis did show 2+ leukocyte Estrace and 11-20 white blood cells per high- power field but the specimen was negative for bacteria as well as nitrites. An EKG was performed that showed sinus rhythm without any changes indicative of acute ischemia. Since arrival to the emergency department the patient has had intravenous famotidine, intravenous acetaminophen, and Zofran with some resolution of her symptoms but she still continued to have some right upper quadrant abdominal pain particular with palpation. At the time my interview she was resting comfortably bed she was no distress. Allergies Allergy/AdvReac Type Severity Reaction Status Date / Time maltodextrin Allergy Intermediate Migraine Verified 10/29/23 07:44 Home Medications Medication Instructions Recorded Confirmed Type sumatriptan succinate 100 mg tablet 100 mg PO .COMPLEX PRN Headache 04/07/23 12/07/23 Rx #12 tabs topiramate 50 mg tablet 50 mg PO BID #180 tabs 06/09/23 12/07/23 Rx atogepant 60 mg tablet (Qulipta) 60 mg PO PM 90 days #90 tabs 07/02/23 12/07/23 Rx zolpidem 5 mg tablet 5 mg PO HS PRN insomnia #30 tabs 08/06/23 12/07/23 Rx meclizine 25 mg tablet 25 mg PO TID PRN dizziness #90 tabs 08/07/23 12/07/23 Rx Past Med/Surg History Problem List Abdominal pain, acute (Acute) Biliary colic (Acute) Posterior auricular pain of right ear Vertigo Acute migraine Varicose veins of both lower extremities Migraines Eczema (Chronic) Insomnia (Chronic) Hypothyroidism (Chronic) Cervical facet syndrome (Chronic) Hyperlipidemia (Chronic) Depression with anxiety (Chronic) Classic migraine with aura (Chronic) Neck pain (Acute) Mild obstructive sleep apnea Fatigue Chronic migraine Palpitations Myofascial pain Vitamin D deficiency Pulmonary nodule Medical History Endometriosis Surgical History History of endometrial ablation History of hysteroscopy History of lithotripsy History of cystostomy Family History Father Cardiac disorder Other Dementia Denies family history of Ovarian cancer Prostate cancer Breast cancer Colorectal cancer Social History Smoking Status: Never smoker Second Hand Exposure: No; Do You Dip or Chew Tobacco: No; Hx Alcohol Use: No Hx Substance Use: No Preferred Language: Telugu Communication Ability: Effective Visual Impairment: No Limitations Hearing Ability: Normal Head Boys Golf Coach Required: No Beliefs That Will Affect Care: None marital status: Current Living Situation: Spouse current occupational status: employed 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 Other Information That Helps Us Care for You: No Feels Safe at Home: Yes Safety Concerns: Feels Safe At This Time Childhood Exposure to Second-Hand Smoke: No Diet: other Diet Comment: healthy diet Dental Care, Regularly: Yes Physical Activity Frequency: 3-4 Times per Week Seatbelt Use: always Sunscreen Use: Yes Assistive Devices: None Review of Systems Review of Systems: All systems reviewed & are unremarkable except as noted in HPI & below Physical Exam Constitutional: WD/WN, vitals as above Eyes: + anicteric sclerae ENMT: Ears: no hearing impairment and no external ear abnormality Sublingual jaundice is absent Neck: trachea midline Respiratory: normal respiratory effort, lungs clear to auscultation Cardiovascular: Rate/Rhythm: regular rate and regular rhythm Vessels: dorsalis pedis pulses present and radial pulses present Gastrointestinal (Abdomen): At the time of my exam the patient's abdomen was noted be soft and nondistended and nonrigid. Bowel sounds are present. There is no rebound tenderness or guarding but patient did have pain with palpation of the right upper quadrant with a positive Delgado sign. Musculoskeletal: No calf tenderness. Feet are warm and well-perfused Skin: no rashes and no jaundice Neurologic: moves all extremities Psychiatric: A+Ox3, euthymic affect Results & Data Results & Data Vital Signs (Past 12 Hours) Vital Signs Temp Pulse Pulse Resp BP BP Pulse Ox 12/07/23 22:25 76 18 160/93 H 100 12/07/23 22:24 99 12/07/23 22:13 80 12/07/23 22:00 36.6 C 84 18 158/83 H 100 O2 Del Method 12/07/23 22:25 Room Air 12/07/23 22:24 Room Air 12/07/23 22:13 12/07/23 22:00 Room Air PG Care Time/CCT Total # of Minutes Spent Total Time Spent with Patient: Total time spent is greater than 50% in coordination of care (as documented) at patient's floor/unit and/or counseling patient: Coding Level of Care Code 26706 INT INP/OBS CARE MIN Diagnoses Biliary colic K80.50
[2023-12-08 00:16] LABS: Pregnancy Test, Serum Negative (Negative)
[2023-12-08] MEDS: cefOXitin 2,000 MG/60 ML BAG IV STA (00:38)
[2023-12-08] MEDS: SODIUM CHLORIDE 0.9% 1,000 ML IV SCH (00:40)
--- NOTE | 2023-12-08 01:05 | Ultrasound Report ---
Exam(s): US GALLBLADDER EXAM: US Abdomen Limited, Right Upper Quadrant CLINICAL HISTORY: ruq pain. TECHNIQUE: Real-time ultrasound of the right upper quadrant with image documentation. COMPARISON: CT abdomen 02/07/2023. FINDINGS: Liver: 18.6 image length. Heterogeneous. No focal intrahepatic lesion. No mass. No intrahepatic bile duct dilation. Gallbladder: Multiple mobile gallstones within the gallbladder. No gallbladder wall thickening or pericholecystic fluid. Nondiagnostic sonographic Delgado's sign due to medication. Common bile duct: 3.9 mm. No stones. No dilation. Pancreas: 2.2 mm pancreatic duct. Pancreas is normal in appearance. Right kidney: 11.3 cm length. 1.1 cm cyst in the midpole. No stones. No solid mass. No hydronephrosis. IMPRESSION: Cholelithiasis. No alternatives for acute cholecystitis or biliary obstruction. Prominent heterogeneous liver without focal lesion. Right renal cyst. Electronically signed by: Chandu Wilson M.D. 12/08/23 01:04 AM
[2023-12-08] MEDS ORDERED: SUMAtriptan succinate 100 MG TAB PO PRN (01:47)
[2023-12-08] MEDS: cefOXitin 2,000 MG in DEXTROSE 5 % MINI-B 50 ML IV SCH (06:02)
[2023-12-08 06:22] LABS: Basophils # (auto) 0.03 K/uL (0.00-0.20); Basophils % (auto) 0.3 %; Eosinophils # (auto) 0.08 K/uL (0.00-0.50); Eosinophils % (auto) 0.9 %; Hematocrit (blood only) 39.1 % (37.0-47.0); Hemoglobin 12.9 g/dl (12.0-16.0); Immature Granulocytes # (auto) 0.03 K/uL (0.01-0.20); Immature Granulocytes % (auto) 0.3 %; Lymphocytes % (auto) 32.6 %; Mean Corpuscular Hemoglobin 28.9 pg (25.0-34.0); Mean Corpuscular Volume 87.5 fL (80.0-100.0); Mean Platelet Volume 8.7 fL (9.4-12.4); Monocytes # (auto) 0.67 K/uL (0.11-0.59); Monocytes % (auto) 7.8 %; Neutrophils # (auto) 4.98 K/uL (1.40-6.50); Neutrophils % (auto) 58.1 %; Platelet Count 230 K/uL (130-400); RDW Coefficient of Variation 13.2 % (11.5-14.5); RDW Standard Deviation 42.3 fL (36.4-46.3); Red Blood Count 4.47 M/uL (4.20-5.40); White Blood Count 8.59 K/ul (4.8-10.8)
[2023-12-08 06:38] LABS: Albumin Globulin Ratio 2.4 (0.9-2); Albumin Level 4.1 gm/dl (3.4-5.0); BUN Creatinine Ratio 17.2 (10-20); Bilirubin,Total 0.4 mg/dl (0.2-1.0); Calcium 8.7 mg/dl (8.6-10.3); Creatinine Clr Calc Pharmacy 88.7 ml/min; Est GFR (African American) 115.6 ml/min; Est GFR (Non-African American) 99.8 ml/min; Globulin 1.7 gm/dl (2.5-4.0); Potassium 4.2 mmol/L (3.5-5.1); Total Protein 5.8 gm/dl (6.0-8.3)
[2023-12-08 06:53] LABS: Partial Thromboplastin Ratio 0.9; Partial Thromboplastin Time 25 Seconds (21-31); Prothrombin Time 10.7 Seconds (9.0-12.0)
--- NOTE | 2023-12-08 07:52 | XRay Report ---
XR chest 1V portable HISTORY: pre-op COMPARISON: Chest 09/27/2016. FINDINGS: No pneumothorax. No pleural effusions. The left lung is clear. The heart is normal in size. No acute fractures identified. Small linear scarlike density seen within the right midlung zone. Oth erwise, the right lung is clear. IMPRESSION: No acute process. ACT 112: Negative or not required by law. Electronically signed by: Sandeep Ramirez M.D. 12/08/2023 7:51 AM
[2023-12-08] MEDS: TOPIRAMATE 50 MG TAB PO SCH (08:32)
--- NOTE | 2023-12-08 09:35 | Electrocardiogram Report ---
Test Reason : Blood Pressure : */* mmHG Vent. Rate : 76 BPM Atrial Rate : 76 BPM P-R Int : 158 ms QRS Dur : 76 ms QT Int : 414 ms P-R-T Axes : 69 45 73 degrees QTcB Int : 465 ms Normal sinus rhythm Normal ECG When compared with ECG of 14-Oct-2022 13:42, No significant change was found Confirmed by Vincent Macedo ([id number]) on 12/08/2023 9:35:16 AM Referred By: REFERRED SELF Confirmed By: Vincent Macedo
--- NOTE | 2023-12-08 11:40 | Surgery Progress Note ---
Date of Service December 08, 2023 Assessment & Plan (1) Acute cholecystitis: Plan: Her US images and results were personally viewed and interpreted by myself She has cholelithiasis and continued pain which is consistent with acute cholecystitis Will plan on laparoscopic cholecystectomy, possible open, possible IOC Consent was obtained and risks discussed including bleeding, infection, bile leak, ductal injury Admission and Anticipated Discharge Date Admission Date: December 08, 2023 Subjective Pt seen and examined. Still with some RUQ pain. No acute events overnight. Review of Systems Constitutional: no fever and no chills Gastrointestinal: + abdominal pain and + nausea; no vomiti ng Physical Exam Constitutional: WD/WN, vitals as above Gastrointestinal (Abdomen): Inspection/Auscultation: abdomen normal to inspection; abdomen not distended Percussion/Palpation: + abdomen tender (RUQ) and abdomen soft; no guarding Results & Data Vital Signs (Past 12 Hours) Vital Signs Temp Pulse Pulse Pulse Pulse Resp BP 12/08/23 08:00 36.5 C 69 14 12/08/23 01:26 36.5 C 72 18 12/08/23 01:16 75 16 111/80 12/08/23 00:01 75 16 12/08/23 00:00 75 16 BP Pulse Ox O2 Del Method 12/08/23 08:00 136/71 96 Room Air 12/08/23 01:26 111/73 99 Room Air 12/08/23 01:16 98 Room Air 12/08/23 00:01 111/80 98 12/08/23 00:00 111/80 98 Room Air PG Care Time/CCT Total # of Minutes Spent Total Time Spent with Patient: Total time spent is greater than 50% in coordination of care (as documented) at patient's floor/unit and/or counseling patient: Coding Level of Care Code 96984 SUB INP/OBS CARE 25MIN Diagnoses Acute cholecystitis K81.0
[2023-12-08] MEDS ORDERED: ROCURONIUM BROMIDE 10 MG/ML 5 ML VIAL IV ONE ×2 (12:41→14:27)
[2023-12-08] MEDS ORDERED: DEXAMETHASONE SOD INJ 4 MG/ML VIAL ONE ×2 (12:41→14:27)
[2023-12-08] MEDS ORDERED: LIDOCAINE 2% 2 ML VIAL/AMP(20MG/ML) INFIL ONE ×2 (12:41→14:27)
[2023-12-08] MEDS ORDERED: fentaNYL citrate PF 100 MCG/2 ML VIAL ONE ×2 (12:41→15:01)
[2023-12-08] MEDS ORDERED: PROPOFOL IV EMULSION 10 MG/ML 20 ML VIAL IV ONE ×2 (12:41→14:27)
[2023-12-08] MEDS ORDERED: ONDANSETRON INJ 2 MG/ML 2 ML VIAL ONE ×2 (12:41→14:27)
[2023-12-08] MEDS ORDERED: MIDAZOLAM HCL 1 MG/ML 2ML VIAL ONE (12:41)
[2023-12-08] MEDS ORDERED: DROPERIDOL 5 MG/2 ML VIAL ONE (12:41)
--- NOTE | 2023-12-08 13:45 | Anesthesiology Consultation ---
Date of Service December 08, 2023 Assessment & Plan Chart Review Chart Review: entry level management initiated History Surgery Operation Date: 12/08/23 14:30 Proposed Procedures p Laparoscopic Cholecystectomy - Atul Flowers DO Height/Weight Height: 5 ft 1 in Weight: 71.395 kg Allergies Allergy/AdvReac Type Severity Reaction Status Date / Time maltodextrin Allergy Intermediate Migraine Verified 10/29/23 07:44 Medications Home Medications Medication Instructions Recorded Confirmed Last Taken sumatriptan succinate 100 mg tablet 100 mg PO .COMPLEX PRN Headache 04/07/23 12/07/23 Unknown #12 tabs topiramate 50 mg tablet 50 mg PO BID #180 tabs 06/09/23 12/07/23 Unknown atogepant 60 mg tablet (Qulipta) 60 mg PO PM 90 days #90 tabs 07/02/23 12/07/23 Unknown zolpidem 5 mg tablet 5 mg PO HS PRN insomnia #30 tabs 08/06/23 12/07/23 Unknown meclizine 25 mg tablet 25 mg PO TID PRN dizziness #90 tabs 08/07/23 12/07/23 Unknown oxycodone 5 mg tablet 5 - 10 mg (1 - 2 x 5 mg) PO 12/08/23 Unknown .[id number] PRN pain #15 tabs Active Medications Generic Name Dose Route Start Last Admin Trade Name Freq PRN Reason Stop Dose Admin Sodium Chloride 1,000 mls @ 100 mls/hr 12/08/23 00:15 12/08/23 11:14 Nss IV 01/07/24 00:14 100 mls/hr .Q10H BIPIN Administration Cefoxitin Sodium 2,000 mg/ 50 mls @ 100 mls/hr 12/08/23 06:00 12/08/23 11:46 Dextrose IV 12/18/23 05:59 Infused Q6H BIPIN Infusion Protocol Topiramate 50 mg 12/08/23 09:00 12/08/23 08:32 Topiramate 50 Mg Tab PO 01/07/24 08:59 50 mg BID BIPIN Administration NPO Date Last Intake of Fluids: 12/08/23 Time Last Intake of Fluids: 00:00 Date Last Intake of Solids: 12/07/23 Time Last Intake of Solids: 18:00 Past Medical History Medical History Endometriosis Past Family History Family History Father Cardiac disorder Other Dementia Denies family history of Ovarian cancer Prostate cancer Breast cancer Colorectal cancer Past Surgical History Surgical History History of endometrial ablation History of hysteroscopy History of lithotripsy History of cystostomy Social History Smoking Status: Never smoker Do You Dip or Chew Tobacco: No Hx Alcohol Use: No Hx Substance Use: No Physical Exam Vital Signs Last Vital Signs Temp 97.7 F 12/08/23 08:00 Pulse 69 12/08/23 08:00 Resp 14 12/08/23 08:00 BP 136/71 12/08/23 08:00 Pulse Ox 96 12/08/23 08:00 O2 Del Method Room Air 12/08/23 08:00 Testing Laboratory Results 12/08/23 06:03 12/08/23 06:03 PT 10.7 Seconds (9.0-12.0) 12/08/23 06:03 INR 1.0 (0.9-1.1) 12/08/23 06:03 APTT 25 Seconds (21-31) 12/08/23 06:03 Urine Color Yellow 12/07/23 23:02 Urine Appearance Clear (Clear) 12/07/23 23:02 Urine pH 6.5 (4.5-7.5) 12/07/23 23:02 Ur Specific [place] 1.015 (1.000-1.030) 12/07/23 23:02 Urine Protein Negative (Negative) 12/07/23 23:02 Urine Glucose (UA) Negative (Negative) 12/07/23 23:02 Urine Ketones Negative (Negative) 12/07/23 23:02 Urine Nitrite Negative (Negative) 12/07/23 23:02 Ur Leukocyte Esterase 2+ (Negative) H 12/07/23 23:02 Urine WBC (Auto) 11-20 /hpf (0-5) H 12/07/23 23:02 Urine RBC (Auto) 0-2 /hpf (0-2) 12/07/23 23:02 U Hyaline Cast (Auto) 0-2 /lpf (0-2) 12/07/23 23:02 U Epithel Cells (Auto) 0-2 /hpf (0-2) 12/07/23 23:02 Urine Bacteria (Auto) None Seen (None Seen) 12/07/23 23:02 Electrocardiogram Date: 12/07/23 Findings: + NSR @ (76 bpm) Chest X-Ray Date: 12/07/23 Findings: + NAD
[2023-12-08] MEDS ORDERED: ATROPINE SULFATE 0.1 MG/ML 10ML SYR IV PRN (13:52)
[2023-12-08] MEDS ORDERED: ePHEDrine sulfate 50 MG/ML AMP IV PRN (13:52)
[2023-12-08] MEDS: LACTATED RINGER'S 1,000 ML IV SCH (14:04)
[2023-12-08] MEDS ORDERED: SUGAMMADEX SODIUM 200 MG/2 ML VIAL IV ONE (14:28)
--- NOTE | 2023-12-08 14:57 | Post Operative Brief Note ---
PG Immediate Post Op with CF Date of Surgery December 08, 2023 Pre & Post Diagnosis Operation Date: 12/08/23 14:30 Pre-Op Diagnosis: Biliary Colic Post-Op Diagnosis: Acute Cholecystitis I identified the patient and participated in the time-out.: Yes Procedure Operation Date: 12/08/23 14:30 Actual Procedures p Laparoscopic Cholecystectomy(Not Applicable) - Atul Flowers DO Surgeon Atul Flowers DO Planning Specialist Justin CASTRO Estimated Blood Loss 5 Findings See Below Edematous gallbladder Specimens Specimen Description: A. Gallbladder and contents Anesthesia Type General Complications none Disposition Disposition: Recovery Room
[2023-12-08] MEDS: BUPIVACAINE/EPINEPHRINE 0.25% 1:200,000 30 ML VIAL ONE (14:58)
--- NOTE | 2023-12-08 15:00 | Operative Report ---
PG Post Operative Report Pre & Post Diagnosis Operation Date: 12/08/23 14:30 Pre-Op Diagnosis: Biliary Colic Post-Op Diagnosis: Acute Cholecystitis I identified the patient and participated in the time-out.: Yes Procedure Operation Date: 12/08/23 14:30 Actual Procedures p Laparoscopic Cholecystectomy(Not Applicable) - Atul Flowers DO Surgeon Atul Flowers DO [employer] Justin CASTRO Estimated Blood Loss 5 Findings See Below Edematous gallbladder Fluids see anesthesia record Specimens Gallbladder to pathology Drains None Anesthesia Type General Complications none Disposition Disposition: Recovery Room Indications 58 yo female with acute cholecystitis Description of Procedure The patient was brought to the operating room and placed in the supine position with both arms extended. At this time she underwent general endotracheal anest hesia without any problems. She was given appropriate pre-operative antibiotics. Her abdomen prepped and draped in the usual sterile fashion. A timeout was called, the procedure was verified as Laparoscopic cholecystectomy, possible open, possible intra-operative cholangiogram. Surgical, nursing and anesthesia teams agreed and the procedure was begun. After injection of 0.25% Marcaine with epinephrine, a supraumbilical vertical incision was made and carried down to the fascia using S-retractors. The abdominal wall was then elevated with towel clamps and abdomen entered using the Veress needle confirming position using the saline drop test. Pneumoperitoneum was established. 5mm trocar was placed. Laparoscope was introduced. No injury from entry into the abdomen was visualized after inspection of the abdomen. Three further ports were placed under direct visualization. One 11mm in the subxiphoid region and two 5mm in the RUQ. At this time the abdomen was inspected and the gallbladder identified. The gallbladder fundus was grasped and retracted cephalad. The gallbladder infundibulum was then grasped and retracted laterally. The gallbladder itself was mildly inflamed and edematous consistent with acute cholecystitis. The cystic duct and cystic artery were then identified and skeletonized. The critical view of safety was obtained. They were both then clipped twice proximally and once distally and then divided using scissors. The gallbladder was then taken off of the liver bed using electrocautery and placed in an endocatch bag and removed from the subxiphoid p ort. The liver bed was then inspected and no bile leak or bleeding was evident. The subxiphoid port was then closed using 0-Vicryl using the suture passer. The trocars were then removed under direct visualization and no bleeding was present. Abdomen was desufflated. The skin was then closed using 4-0 Monocryl in a subcuticular fashion. Surgical glue was applied. Needle and sponge counts were correct x 2. At this time the patient was awoken from anesthesia and extubated having remained stable throughout the entire case. The patient was then transported to PACU in stable condition. The nurse practitioner was present and scrubbed for the entire procedure. She was essential in positioning, prepping and draping the patient, retraction and exposure, driving the laparoscope, closure of the incisions and placement of the dressings. I attest to the content of the Intraoperative Record and any orders documented therein. Any exceptions are noted below.
[2023-12-08] MEDS: fentaNYL citrate PF 100 MCG/2 ML VIAL IV PRN (15:15)
--- NOTE | 2023-12-08 15:43 | Anesthesiology Progress Note ---
Date of Service December 08, 2023 Anesthesia Post Procedure Vital Signs Vital Signs: Temp Pulse Pulse Pulse Pulse Resp BP 12/08/23 15:35 36.4 C L 73 14 12/08/23 15:25 70 13 12/08/23 15:15 70 12 12/08/23 15:05 36.0 C L 64 12 12/08/23 13:44 37 C 76 18 12/08/23 08:00 36.5 C 69 14 12/08/23 01:26 36.5 C 72 18 12/08/23 01:16 75 16 111/80 12/08/23 00:01 75 16 12/08/23 00:00 75 16 12/07/23 22:25 76 18 12/07/23 22:24 12/07/23 22:13 80 12/07/23 22:00 36.6 C 84 18 158/83 H BP Pulse Ox O2 Del Method O2 Flow Rate 12/08/23 15:35 119/59 L 100 Room Air 0 12/08/23 15:25 116/65 100 Oxymask 4 12/08/23 15:15 119/70 100 Oxymask 8 12/08/23 15:05 119/55 L 100 Oxymask 8 12/08/23 13:44 146/87 H 100 Room Air 12/08/23 08:00 136/71 96 Room Air 12/08/23 01:26 111/73 99 Room Air 12/08/23 01:16 98 Room Air 12/08/23 00:01 111/80 98 12/08/23 00:00 111/80 98 Room Air 12/07/23 22:25 160/93 H 100 Room Air 12/07/23 22:24 99 Room Air 12/07/23 22:13 12/07/23 22:00 100 Room Air Pain Intensity Medial Abdomen: Pain Intensity: 3 Transfer of Care Handoff Completed per policy Notes Mental Status: alert / awake / arousable Patient Amnestic to Procedure: Yes Nausea / Vomiting: adequately controlled Pain: adequately controlled Airway Patency, RR, SpO2: stable & adequate BP & HR: stable & adequate Hydration State: stable & adequate Anesthetic Complications: no major complications apparent and Pt Satisfied with anesthetic care
[2023-12-08 19:08] VITALS: RESP 16; TEMP 97.5; O2SAT 99
[2023-12-08 20:02] VITALS: BP 126/80; PULSE 68
[2023-12-08] MEDS: MoRPHine SULFATE 4 MG/ML 1 ML CARP\\VIAL IV PRN (20:18)
--- NOTE | 2023-12-10 19:44 | Discharge Summary ---
Date of Service December 08, 2023 Admission HPI Per Admitting Provider This is a 58-year-old female who presented to the emergency department secondary to abdominal pain. The patient notes that she occasionally gets heartburn after eating and she has had symptoms such as this for months. The patient notes that she went to a restaurant and had a chicken salad and shortly after eating (approximate 1/2-hour) she developed severe pain in the epigastric region as well as the right upper quadrant. She says that the pain was nonradiating without any modifying factors other than it was relieved with medicines administered in the emergency department. The patient did have nausea without vomiting. She denies any fevers, shakes, or chills. Patient notes that she has no known history of gallstones prior to today's presentation. The patient says that she has had prior surgery in the form of a robotic/laparoscopic Brian fundoplication and hiatal hernia repair in January 2023 performed at [facility] in [facility]. She notes that this procedure was performed secondary to severe reflux. The patient notes that she leads an active lifestyle and does not get chest pain or shortness of breath with her typical activities of daily living. She specifically notes that she can negotiate multiple flights of steps without getting chest pain or shortness of breath. She notes that she is a non-smoker. Since arrival to the hospital the patient has had labs and imaging which I independent reviewed. A gallbladder ultrasound was performed. The official radiology read has not been completed but upon my review of the study this shows that the patient has multiple gallstones. I did review the ultrasound with the technologist performing the study and the patient was again noted to have multiple gallstones and they are noted to be mobile when the study was performed. The patient did not have noted gallbladder wall thickness and no pericholecystic fluid was noted. Labs included CBC were white blood cell count was elevated 15.6. Hemoglobin and hematocrit as well as platelet count were normal. Chemistry profile showed sodium and potassium as well as the BUN and creatinine were normal. There is no elevation of the patient's bilirubin, transaminases, or alkaline phosphatase. Lipase was also not elevated. Urinalysis did show 2+ leukocyte Estrace and 11-20 white blood cells per high- power field but the specimen was negative for bacteria as well as nitrites. An EKG was performed that showed sinus rhythm without any changes indicative of acute ischemia. Since arrival to the emergency department the patient has had intravenous famotidine, intravenous acetaminophen, and Zofran with some resolution of her symptoms but she still continued to have some right upper quadrant abdominal pain particular with palpation. At the time my interview she was resting comfortably bed she was no distress. Principal Diagnosis acute cholecystitis Discharge Exam awake/alert, no distress Respiratory normal respiratory effort Gastrointestinal (Abdomen) Inspection/Auscultation: + abdominal surgical incision (c/d/i with surgical dressings) Percussion/Palpation: abdomen soft Discharge Data Allergies Allergy/AdvReac Type Severity Reaction Status Date / Time maltodextrin Allergy Intermediate Migraine Verified 12/09/23 13:44 Consultations 12/07/23 23:50 ED Decision to Admit Stat Procedures Performed Operation Date: 12/08/23 14:30 Actual Procedures p Laparoscopic Cholecystectomy(Not Applicable) - Atul Flowers, Ordered Studies 12/07/23 22:13 gallbladder Stat Hospital Course (1) Acute cholecystitis: This is a 58yF who presented to the [facility] ED on 12/07/23 with complaints of abdominal pain. Workup revealed WBC 15, normal LFTs and imaging concerning for multiple mobile gallstones with questionable cholecystitis. She was tender to palpation in the RUQ. The patient was admitted under the surgical service and kept npo with ivf and started on IV abx. She was scheduled for surgery the following day. On 12/07 the patient went to the OR with Dr. Flowers for a laparoscopic cholecystectomy. The patient tolerated the procedure well, see op note for full details. She recovered in the PACU and was transferred back to her floor/room in stable condition. Post op her diet was advanced as tolerated and pain remained controlled with prn medications. She was deemed stable for discharge to home on POD#0 with instructions to follow up with the surgeon in the office within 2 weeks time. Total Time Total Time Spent Total Time Spent (In Minutes): 10 Discharge Plan Discharge Items Patient Disposition: Home - Self-Care Reason For Visit: TONO Discharge Diagnosis: cholecystectomy Condition on Discharge: Good Activity: Per Instructions section Lifting: No more than 25 pounds Bathing Comment: you can shower 12/10/23. no soaking in pools or baths for 2 weeks Exercise/Sports: Wait until after follow-up appointment Driving/Machine Use: n driving if taking narcotic pain medication Non-emergency contact: Surgeon Call non-emergency contact if: you have any medication questions, your pain is not controlled, your temperature is above 101.5, your wound has increased redness, your wound has increased drainage and your wound pain has increased Follow-up/Referrals: Jackie Posey CRNP [Primary Care Provider] - Jack Navarro, ERNIE [Physician Environmental Auditor] - (call office for follow up in 2 weeks ) Atul Flowers DO [Physician] - Diet: Regular Addtl Attending Provider Instructions: You may remove your outer surgical dressing on 12/10/23. You will have small white bandages on underneath that are over your incision. You may shower with these on. They will tend to fall off on their own in a 7-10 days. You may purchase Tylenol and or Ibuprofen over the counter if needed for addition pain control over the next few days. Take per manufacturers instructions, Do not take more than 3 grams of Tylenol in 24 hours. Pending Studies at Discharge: Yes Studies:: surgical pathology Stand-Alone Forms: My [facility], Smoking Cessation Medications and DC Order Prescriptions: New oxycodone 5 mg tablet 5 - 10 mg PO .[id number] MDD no more than 6 tabs in 24hours PRN (Reason: pain) Qty: 15 0RF Continued sumatriptan succinate 100 mg tablet 100 mg PO .COMPLEX PRN (Reason: Headache) Qty: 12 5RF Rx Instructions: 100 mg PO TAKE 1 TAB AT ONSET OF MIGRAINE, MAY REPEAT IN 2 HOURS IF NEEDED DO NOT EXCEED 3 DAYS/WEEK PRN; topiramate 50 mg tablet 50 mg PO BID Qty: 180 3RF zolpidem 5 mg tablet 5 mg PO HS PRN (Reason: insomnia) Qty: 30 3RF Qulipta 60 mg tablet 60 mg PO PM 90 Days Qty: 90 3RF meclizine 25 mg tablet 25 mg PO TID PRN (Reason: dizziness) Qty: 90 0RF Discharge Orders: Discharge Order (Routine); Ordered 12/08/23 Ordered By: Justin Dumont/Other Patient Handouts: Cholecystectomy Admission Data Admit Date/Time: 12/08/23 00:06 Attending Provider: Atul Flowers Admit Provider: Jack Navarro Primary Care Provider: Jackie Posey Other Providers: Atul Flowers Other Interventions: Discharge Summary Assessment (RN) Last Done: 12/08/23 19:59 Coding Level of Care Code 60081 IN/OBS DISCH 30 MIN/LESS Diagnoses Acute cholecystitis K81.0
== END 2023-12-08 20:44 | disposition home or self-care (01) | DRG 419 ==
LOC: ED 21:56 → INTOOBSV 12-08 00:06 → 3N 12-08 00:06